=== PATIENT | male | born 1970 | race Caucasian/White ===

== ENCOUNTER → 2019-02-24 13:51 | Outpatient (CLI) | payer BC, SELFPAY ==
--- NOTE | 2019-02-24 13:56 | XR_ITS ---
XR foot wt bearing LT 3V HISTORY: ITS.REASON: pain ORDERING PHYSICIAN: Lyudmila Brooks DPM PATIENT AGE: 48 years COMPARISON: None FINDINGS: No fracture or dislocation. No lytic or blastic change. There is normal mineralization.. The joint spaces are well-preserved. Prominent hypertrophic changes are present along the proximal dorsal aspect of the navicular and there are minimal hypertrophic changes of the distal aspect of the first metatarsal. There is good alignment. IMPRESSION: No acute finding. Hypertrophic changes/spurring of the navicular and the first metatarsal
--- NOTE | 2019-02-24 13:56 | XR_ITS ---
XR foot wt bearing RT 3V HISTORY: ITS.REASON: pain ORDERING PHYSICIAN: Lyudmila Brooks DPM PATIENT AGE: 48 years COMPARISON: None FINDINGS: There is mild hallux valgus with mild osteoarthritic change of the first MTP joint and bony hypertrophy of the distal aspect of the first metatarsal. No fracture or dislocation. No lytic or blastic change. IMPRESSION: Hallux valgus with osteoarthritis and bunion formation at the first metatarsophalangeal joint
== END ==
PROVIDERS: Visit Provider Podiatrist
DX: M79.672 Pain in left foot (principal); M79.671 Pain in right foot
CPT/HCPCS: 73630

== ENCOUNTER → 2021-10-18 16:44 | Outpatient (CLI) | payer BC, SELFPAY ==
[2021-10-18 18:24] LABS: Hemoglobin A1C 5.3 % (4.0-6.0)
[2021-10-18 18:59] LABS: Alanine Aminotransferase 18 U/L (12-78); Albumin Level 4.4 g/dl (3.5-5.0); Albumin/Globulin Ratio 1.7 (1.1-1.8); Alkaline Phosphatase 104 U/L (38-126); Aspartate Amino Transferase 25 U/L (17-59); Bilirubin,Total 0.5 mg/dl (0.2-1.3); Blood Urea Nitrogen 12 mg/dl (9-20); Calcium 9.6 mg/dl (8.4-10.2); Carbon Dioxide 27 mmol/L (22.0-30.0); Chloride 102 mmol/L (98-107); Chol/HDL Ratio 6.4 (1-3.5); Cholesterol 187 mg/dl (140-200); Estimated Glomerular Filt Rate 79 ml/min (>60); GFR (African American) 96 ML/MIN (>60); Globulin 2.6 g/dL (1.3-3.2); Glucose 95 mg/dl (74-100); HDL Cholesterol 29 mg/dl (40-60); Sodium 137 mmol/L (136-145); Triglycerides 331 mg/dl (30-150); VLDL Cholesterol 66 mg/dL (0-40)
[2021-10-18 19:10] LABS: Direct LDL Cholesterol 131.52 mg/dL (100-129)
== END ==
PROVIDERS: Visit Provider Nurse Practitioner Family
DX: Z00.00 Encounter for general adult medical examination without abnormal findings (principal)
CPT/HCPCS: 36415; 80053; 80061; 83036

== ENCOUNTER 2025-04-14 13:26 | Outpatient (CLI) | payer BC, SELFPAY ==
--- NOTE | 2025-04-14 13:29 | XR_ITS ---
FINAL REPORT CLINICAL HISTORY: Left hand pain FINDINGS: LEFT HAND Three views were obtained. There is no fracture or dislocation. The joint spaces appear normal. No soft tissue abnormality is identified. IMPRESSION: No acute process. Reviewed, Interpreted and Dictated by Adam Calero MD Transcribed by Elizabeth Zuñiga Authenticated and [facility]
== END 2025-04-14 23:59 | disposition home or self-care (01) ==
LOC: RAD 13:27
PROVIDERS: Visit Provider Physician Assistant
DX: M79.642 Pain in left hand (principal)
CPT/HCPCS: 73130

== ENCOUNTER 2025-04-23 16:02 | Outpatient (CLI) | payer BC, SELFPAY ==
--- NOTE | 2025-04-23 16:30 | MR_ITS ---
PROCEDURE INFORMATION: Exam: MR Left Upper Extremity Other Than Joint Without and With Contrast; Hand Exam date and time: 04/23/2025 4:14 PM Age: 54 years old Clinical indication: Pain; Finger(s); Left; Additional info: Left hand pain, mass of finger of left hand. Mass on posterior surface of hand at the mcp joint, pain extends to the pip TECHNIQUE: Imaging protocol: MR of the left upper extremity without and with contrast. Exam focused on the hand. Contrast material: PROHANCE; Contrast volume: 17 ml; Contrast route: IV; COMPARISON: CR XR HAND LT MIN 3V 04/14/2025 1:32 PM FINDINGS: Bones/joints: There is mild subchondral cystic change in the medial distal head of the 2nd metacarpal which may be related to degenerative change. Otherwise, the osseous structures are unremarkable. Collateral ligaments of digits: Unremarkable. No evidence of tear. Flexor compartment tendons: Unremarkable. No evidence of tear. Extensor compartment tendons: Unremarkable. No evidence of tear. Soft tissues: No soft tissue mass, acute inflammation, or abnormal postcontrast enhancement is distinctly identified. IMPRESSION: No abnormalities distinctly identified. Please consider repeat imaging (MRI or ultrasound) with a marker at the site of interest.
[2025-04-23] MEDS: GADOTERIDOL INJ 20ML SYRINGE 15 ML IV (16:58)
[2025-04-23] MEDS: SODIUM CHLORIDE 0.9% 10ML SYR (RAD ONLY) 10 ML IV (16:58)
== END 2025-04-23 23:59 | disposition home or self-care (01) ==
LOC: RAD 16:03
PROVIDERS: PCP Physician Assistant; Visit Provider Physician Assistant
DX: M79.642 Pain in left hand (principal); R22.32 Localized swelling, mass and lump, left upper limb
CPT/HCPCS: 73220; A9576